=== PATIENT | female | born 2000 | race Caucasian/White ===

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

== ENCOUNTER → 2020-07-13 | Outpatient (CLI) | payer OTHER ==
[~2020-07-13] MED LIST: CLEOCIN HCL150 MG PO; LEVAQUIN500 MG PO; NAPROSYN500 MG PO; REGLAN10 MG PO
[2020-07-13 16:24] LABS: HEMOGLOBIN 9.8 gm/dl (12.3-15.3); RED BLOOD COUNT 4.07 M/UL (4.00-5.10); WHITE BLOOD COUNT 7.7 K/UL (4.5-11.0)
[2020-07-13 16:40] LABS: BUN/CREATININE RATIO 15 (0-10)
[2020-07-14 09:14] LABS: THYROXINE (T4) 6.8 ug/dL (4.5-12.0); VITAMIN D, 25-HYDROXY 23.3 ng/mL (30.0-100.0)
== END ==
LOC: LAB 14:27
PROVIDERS: Nurse Practitioner
DX: K21.9 Gastro-esophageal reflux disease without esophagitis (principal); F41.9 Anxiety disorder, unspecified
CPT/HCPCS: 36415; 80053; 80061; 84436; 84443; 84480; 85025

== ENCOUNTER 2020-07-17 22:23 | Emergency (ER) | payer OTHER ==
[~2020-07-17 22:23] MED LIST changes: -NAPROSYN500 MG PO
[2020-07-17 23:24] LABS: HEMOGLOBIN 10.6 gm/dl (12.3-15.3); RED BLOOD COUNT 4.18 M/UL (4.00-5.10); WHITE BLOOD COUNT 11.4 K/UL (4.5-11.0)
[2020-07-18 01:24] LABS: BUN/CREATININE RATIO 24 (0-10)
[2020-07-18] MEDS ORDERED: NAPROSYN500 MG PO (02:18)
== END 2020-07-18 02:50 | disposition home or self-care (01) ==
LOC: ER1 22:23
PROVIDERS: Physician Assistant
DX: I88.0 Nonspecific mesenteric lymphadenitis (principal); Z88.0 Allergy status to penicillin; Z88.1 Allergy status to other antibiotic agents; Z79.899 Other long term (current) drug therapy
CPT/HCPCS: 80053; 81001; 84703; 85025; 87210; 96374; 99284; J1885; Q9967

== ENCOUNTER → 2020-09-23 | Outpatient (CLI) | payer OTHER ==
[~2020-09-23] MED LIST changes: +NAPROSYN500 MG PO
[2020-09-23 16:30] LABS: HEMOGLOBIN 10.1 gm/dl (12.3-15.3); RED BLOOD COUNT 4.41 M/UL (4.00-5.10); WHITE BLOOD COUNT 7.3 K/UL (4.5-11.0)
[2020-09-23 18:11] LABS: BUN/CREATININE RATIO 12 (0-10)
[2020-09-25 09:14] LABS: THYROXINE (T4) 9.1 ug/dL (4.5-12.0); VITAMIN D, 25-HYDROXY 40.5 ng/mL (30.0-100.0)
== END ==
LOC: LAB 14:46
PROVIDERS: Nurse Practitioner
DX: D64.9 Anemia, unspecified (principal); R53.83 Other fatigue; F41.9 Anxiety disorder, unspecified; K21.9 Gastro-esophageal reflux disease without esophagitis; K25.5 Chronic or unspecified gastric ulcer with perforation; J06.9 Acute upper respiratory infection, unspecified; Z13.220 Encounter for screening for lipoid disorders; E55.9 Vitamin D deficiency, unspecified
CPT/HCPCS: 36415; 80053; 80061; 81001; 84436; 84443; 84480; 85025

== ENCOUNTER → 2020-10-28 | Outpatient (CLI) | payer OTHER | LOC: LAB 14:49 | DX: D50.9 Iron deficiency anemia, unspecified (principal); R79.0 Abnormal level of blood mineral | CPT/HCPCS: 82728; 83540; 83550 ==